=== PATIENT | male | born 1970 | race Two or more races ===

== ENCOUNTER → 2024-04-23 | Outpatient (CLI) | payer MEDICAID ==
[~2024-04-23] VITALS: Ht 167.6 cm; Wt 90.7 kg
[2024-04-23] MEDS: REGADENOSON 0.4 MG/5 ML SYRG IV ONE ×2 (10:53→10:54)
--- NOTE | 2024-04-23 13:34 | DVHSR ---
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 Time of rest injection: 0910 Time of rest imagin Administration Route: IV Administration Site: Left AC Pharmacologic Stress Pharmacologic stress test was performed by injecting Regadenoson 0.4 mg IV push followed by the intra venous injection of 32.3 mCi of Tc-99m Sestamibi. Time of stress injection: 1053 Time of stress imagin Administration Route: IV Administration Site: Left AC Gated Stress SPECT was performed 60 minutes after stress injection. The images were gated to evaluate regional wall motion and calculate left ventricular ejection fracti on. Stress only was performed in the Supine position. 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
== END | disposition home or self-care (01) ==
LOC: XY 08:30
PROVIDERS: ATTEND Internal Medicine
DX: I25.10 Atherosclerotic heart disease of native coronary artery without angina pectoris (principal)
CPT/HCPCS: 78452; 93017; A9500; J2785